=== PATIENT | male | born 1990 | race Caucasian/White ===

== ENCOUNTER 2019-04-11 10:45 | Observation (INO) ==
--- OUTSIDE RECORDS SUMMARY | 2019-04-11 10:49 | External Medical Summary | Continuity of Care Document ---
:1990 Author Name Bozena Cornejo, Provider Address Unavailable Unavailable , Care Team Providers Name Role Phone Bala Mcdermott [email or web address] [facility] AMAIRANI CARROLL Unavailable Unavailable Assessments Assessed Problems:Nephrolithiasis Problems Hematuria (599.70) (R31.9) Asthma (493.90) (J45.909) Chronic bronchitis (491.9) (J42) Hypertension (401.9) (I10) Nephrolithiasis (592.0) (N20.0) Hematuria, microscopic (599.72) (R31.29) Allergies and Adverse Reactions Claritin TABS (Allergy) traMADol HCl TABS (Allergy) Medications Dilantin 100 MG Oral Capsule Refills: 0 Excedrin TABS Refills: 0 Metoprolol Tartrate 50 MG Oral Tablet Refills: 0 Nortriptyline HCl CAPS Refills: 0 Procedures Procedures not documented Immunizations Immunizations not documented Social History - Smoking Status Former smoker Plan of Treatment Planned Observations Planned Goals not documented Results No Known Results Results not documented Encounters Appointment; Bala Mcdermott M.D. 11-Feb-2017 10:10 Encounter Diagnosis: Problem not documented
[2019-04-11] MEDS ORDERED: SODIUM CHLORIDE 0.9% 1000ML 1,000 ML IV SCH (11:15)
--- NOTE | 2019-04-11 11:21 | XRay Report ---
XR chest 1V portable CLINICAL HISTORY: weakness mental status change COMPARISON STUDY: No previous studies for comparison. FINDINGS: The bones soft tissues and hemidiaphragms are normal. The cardiomediastinal silhouette is n ormal. The lungs are clear. The pulmonary vasculature is normal. IMPRESSION: Negative chest. The above report was generated using voice recognition software. It may contain grammatical, syntax or spelling errors. Electronically signed by: Hermann Rodriguez M.D. 04/11/2019 11:20 AM
[2019-04-11 11:43] LABS: Basophils # (auto) 0.01 K/uL (0-0.2); Basophils % (auto) 0.2 %; Eosinophils % (auto) 4.1 %; Hematocrit (blood only) 46.5 % (42-52); Immature Granulocytes # (auto) 0.01 K/uL (0.00-0.02); Immature Granulocytes % (auto) 0.2 %; Lymphocytes # (auto) 1.27 K/uL (1.2-3.4); Lymphocytes % (auto) 25.9 %; Mean Corpuscular Hgb Conc 34.4 g/dL (32-36); Mean Corpuscular Volume 97.7 fL (80-100); Mean Platelet Volume 8.6 fL (7.4-10.4); Monocytes # (auto) 0.61 K/uL (0.11-0.59); Monocytes % (auto) 12.4 %; Neutrophils # (auto) 2.81 K/uL (1.4-6.5); Neutrophils % (auto) 57.2 %; Platelet Count 270 K/uL (130-400); RDW Coefficient of Variation 12.6 % (11.5-14.5); Red Blood Count 4.76 M/uL (4.7-6.1); White Blood Count 4.91 K/uL (4.8-10.8)
--- NOTE | 2019-04-11 11:47 | CT Scan Report ---
CT head/brain wo con CLINICAL HISTORY: 29 years-old Male presenting with right-sided weakness, stroke evaluation. TECHNIQUE: Multidetector CT imaging of the head was performed without the use of intravenous contrast . IV contrast: None. One or more dose lowering techniques were used consistent with the principles of ALARA (as low as reasonably achievable), including automatic exposure control, mA or kV adjustment t o individual patient size, and/or use of iterative reconstruction. COMPARISON: 03/26/2010. CT DOSE (mGy.cm): The estimated cumulative dose is 638.56. FINDINGS: It Infrastructure Engineer topogram: Unremarkable. Ventricles and sulci normal in size. No hemorrhage. Brain parenchyma normal in appearance with preser ivett gagnon-white differentiation. No acute territorial infarct. No mass effect or midline shift. No ext ra-axial fluid collection. Paranasal sinuses and mastoid air cells clear. Calvarium intact. IMPRESSION: 1. No acute intracranial abnormality. Electronically signed by: Garrick Rogers M.D. 04/11/2019 11:46 AM
[2019-04-11 12:00] LABS: Alanine Aminotransferase 68 U/L (12-78); Albumin Level 3.9 gm/dl (3.4-5.0); Aspartate Aminotransferase 40 U/L (15-37); BUN Creatinine Ratio 16.9 (10-20); Blood Urea Nitrogen 18 mg/dl (7-18); Calcium 9.4 mg/dl (8.5-10.1); Carbon Dioxide 31 mmol/L (21-32); Chloride 105 mmol/L (98-107); Creatinine Clr Calc Pharmacy 119.4 ml/min; Est GFR (African American) 107.7; Est GFR (Non-African American) 92.9; Glucose 92 mg/dl (70-99); Magnesium 2.1 mg/dl (1.8-2.4); Potassium 4.3 mmol/L (3.5-5.1); Sodium 141 mmol/L (136-145)
[2019-04-11 12:05] LABS: Albumin Globulin Ratio 1.2 (0.9-2); Alkaline Phosphatase 76 U/L (45-117); Bilirubin,Total 0.4 mg/dl (0.2-1); Globulin 3.3 gm/dl (2.5-4.0); Total Protein 7.2 gm/dl (6.4-8.2); Troponin I < 0.015 ng/ml (0-0.045)
[2019-04-11 12:11] LABS: INR 1.1 (0.9-1.1); Partial Thromboplastin Ratio 0.9; Partial Thromboplastin Time 25.6 Seconds (21.0-31.0); Prothrombin Time 10.8 Seconds (9.0-12.0)
--- NOTE | 2019-04-11 13:15 | Emergency Department Note ---
Entered by Soo Renae acting as a scribe for History of Present Illness General Chief complaint: Stroke/CVA Symptoms Stated complaint: RIGHT SIDE Time Seen by Provider: 04/11/19 10:57 Source: patient History of Present Illness Provider complaint: right-sided weakness Onset (ago): day(s) 8 Location: upper extremity, lower extremity and right Pain Consistency: + constant Maximum Pain Intensity: 0 Quality: + other (weakness) The patient is a 29 year old male who presents to the Emergency Department with complaints of right-sided weakness for the last 8 days. The patient rates his pain intensity at a 0/10. He states that he first had symptoms 8 days ago and was sitting while he had these symptoms. He states that he went to the [facility] and said that he had a stroke. He states that he fell and states that he does not remember a lot of the episode. The patient states that he takes Dilantin, Aspirin, and Gabapentin daily. The patient states that his Dilantin level was last checked 1 month ago and states that he last had a seizure on the . He reports a history of seizures and a lithotripsy. He denies alcohol and drug use. The patient states that he last used tobacco 3 years ago. He denies a history of cardiac problems. Home Medications Home Medications Medication Instructions Recorded Confirmed Type aspirin 81 mg PO DAILY 04/11/19 04/11/19 History elbelwskjw-lhfnhqgrszedr-vejx 1 tab PO BID PRN 04/11/19 04/11/19 History diclofenac sodium 75 mg PO BID PRN 04/11/19 04/11/19 History gabapentin 300 mg PO BID 04/11/19 04/11/19 History gabapentin 600 mg PO BID 04/11/19 04/11/19 History levetiracetam [Keppra] 500 mg PO BID 04/11/19 04/11/19 History metoprolol tartrate 100 mg PO BID 04/11/19 04/11/19 History ondansetron HCl 4 mg PO TID PRN 04/11/19 04/11/19 History phenytoin 50 mg PO HS 04/11/19 04/11/19 History phenytoin sodium extended 200 mg PO HS 04/11/19 04/11/19 History Allergies Allergy/AdvReac Type Severity Reaction Status Date / Time loratadine Allergy Unknown . Verified 04/11/19 11:29 tramadol Allergy Unknown . 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 and A total of 10 systems reviewed and were otherwise negative Physical Exam Vital Signs Vital Signs - 24 hr 04/11/19 10:48 04/11/19 11:33 04/11/19 11:57 Temperature 36.8 C Temperature Source Oral Sepsis Recent Fever Within 48 Hours No Sepsis Action Taken by Nursing No Action Required Pulse Rate 70 64 66 Pulse Rate from SpO2 Sensor 64 Respiratory Rate 16 22 23 Respiratory Effort / Characteristics Non-Labored Respiratory Depth Normal Blood Pressure 146/100 H 132/92 Blood Pressure Mean 115 105 Blood Pressure Position Lying Pulse Oximetry 97 97 96 Oxygen Delivery Method Room Air Room Air Room Air 04/11/19 12:00 04/11/19 12:01 04/11/19 12:30 Temperature Temperature Source Sepsis Recent Fever Within 48 Hours Sepsis Action Taken by Nursing Pulse Rate 66 62 62 Pulse Rate from SpO2 Sensor 65 62 62 Respiratory Rate 25 H 17 12 Respiratory Effort / Characteristics Respiratory Depth Blood Pressure 140/88 139/82 Blood Pressure Mean 105 101 Blood Pressure Position Pulse Oximetry 95 95 95 Oxygen Delivery Method Room Air Room Air Room Air 04/11/19 12:31 04/11/19 13:00 04/11/19 13:01 Temperature Temperature Source Sepsis Recent Fever Within 48 Hours Sepsis Action Taken by Nursing Pulse Rate 61 62 67 Pulse Rate from SpO2 Sensor 61 63 67 Respiratory Rate 21 17 18 Respiratory Effort / Characteristics Respiratory Depth Blood Pressure 142/85 H Blood Pressure Mean 104 Blood Pressure Position Pulse Oximetry 95 97 96 Oxygen Delivery Method Room Air Room Air Room Air 04/11/19 13:30 Temperature Temperature Source Sepsis Recent Fever Within 48 Hours Sepsis Action Taken by Nursing Pulse Rate 65 Pulse Rate from SpO2 Sensor 62 Respiratory Rate 16 Respiratory Effort / Characteristics Respiratory Depth Blood Pressure Blood Pressure Mean Blood Pressure Position Pulse Oximetry 95 Oxygen Delivery Method Room Air GENERAL: Patient is awake, alert, and in no acute distress.Patient is resting comfortably and showing no signs of anxiety EYES: The conjunctivae are clear. The pupils are round and reactive. EARS, NOSE, MOUTH AND THROAT: The nose is without any evidence of any deformity. Mucous membranes are moist.Tongue is midline NECK: The neck is nontender and supple. RESPIRATORY: Normal respiratory effort is noted. There is no evidence of wheezing rhonchi or rales to auscultation. CARDIOVASCULAR: Regular rate and rhythm noted. There no murmurs rubs or gallops normal S1 normal S2 GASTROINTESTINAL: The abdomen is soft. Bowel sounds are present in all quadrants. Abdomen is nontender. MUSCULOSKELETAL/EXTREMITIES: There is no evidence of gross deformity. Full range of motion is noted in the hips and shoulders. SKIN: There is no obvious evidence of any rash. There are no petechiae, pallor or cyanosis noted. NEUROLOGIC: Patient is awake alert and oriented x3. Slight right facial droop with sparing of the forehead on the right. 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 The patient is able to hold each leg off of the bed for greater than 5 seconds. Diminished strength in the right lower extremity. Course 1100: The patient was evaluated in room C7. A history and physical were performed. 1233: I discussed the patient's case with Oneyda Mraes, admitting to Dr. Schulz, who will evaluate the patient for further management. 1249: I updated the patient who verbalized agreement and understanding of the treatment plan. Consultations Consultation #1: Oneyda Mares Time: 12:33 Administered Medications Aspirin (Ecotrin Ectab) 81 mg PO DAILY ISABEL Stop: 05/12/19 08:59 Last Admin: 04/12/19 08:43 Dose: 81 mg Documented by: [id number] Enoxaparin Sodium (Lovenox) 40 mg SQ HS ISABEL Stop: 05/11/19 20:59 Last Admin: 04/11/19 21:02 Dose: 40 mg Documented by: [id number] Gabapentin (Neurontin) 300 mg PO BID ISABEL Stop: 05/11/19 20:59 Last Admin: 04/12/19 08:42 Dose: 300 mg Documented by: [id number] Admin: 04/11/19 21:02 Dose: 300 mg Documented by: [id number] Gabapentin (Neurontin) 600 mg PO BID ISABEL Stop: 05/11/19 20:59 Last Admin: 04/12/19 08:42 Dose: 600 mg Documented by: [id number] Admin: 04/11/19 21:02 Dose: 600 mg Documented by: [id number] Levetiracetam (Keppra) 500 mg PO BID ISABEL Stop: 05/11/19 20:59 Last Admin: 04/12/19 08:43 Dose: 500 mg Documented by: [id number] Admin: 04/11/19 21:01 Dose: 500 mg Documented by: [id number] Metoprolol Tartrate (Lopressor) 100 mg PO BID ISABEL Stop: 05/11/19 20:59 Last Admin: 04/12/19 08:43 Dose: 100 mg Documented by: [id number] Admin: 04/11/19 21:02 Dose: 100 mg Documented by: [id number] Phenytoin (Dilantin) 50 mg PO HS ISABEL Stop: 05/11/19 20:59 Last Admin: 04/11/19 21:00 Dose: 50 mg Documented by: [id number] Phenytoin Sodium (Dilantin Er) 200 mg PO HS ISABEL Stop: 05/11/19 20:59 Last Admin: 04/11/19 21:00 Dose: 200 mg Documented by: [id number] Discontinued Medications Sodium Chloride (Nss 1000ml) 1,000 mls @ 50 mls/hr IV .Q20H ISABEL Stop: 05/11/19 11:14 Last Admin: 04/11/19 11:43 Dose: 50 mls/hr Documented by: [id number] Medical Decision Making Differential Diagnosis Differential includes acute coronary syndrome, myocardial infarction, CVA, TIA, anemia, infection, pneumonia, UTI, pyelonephritis, poor nutrition, dehydration, electrolyte disturbance,hypoglycemia. Medical Records Attestation: I reviewed the patient's medical records. Home Medications Current Medication List: was personally reviewed by me Laboratory Data Attestation: I reviewed the patient's lab results. Result diagrams: 04/11/19 11:35 04/11/19 11:35 Lab Results 04/11/19 04/11/19 04/11/19 Range/Units 11:35 11:35 11:35 WBC 4.91 (4.8-10.8) K/uL RBC 4.76 (4.7-6.1) M/uL Hgb 16.0 (14.0-18.0) g/dL Hct 46.5 (42-52) % MCV 97.7 (80-100) fL MCH 33.6 (25-34) pg MCHC 34.4 (32-36) g/dL RDW Std Deviation 45.0 (36.4-46.3) fL RDW Coeff of Robinson 12.6 (11.5-14.5) % Plt Count 270 (130-400) K/uL MPV 8.6 (7.4-10.4) fL Immature Gran % (Auto) 0.2 % Neut % (Auto) 57.2 % Lymph % (Auto) 25.9 % Warrick % (Auto) 12.4 % Eos % (Auto) 4.1 % Baso % (Auto) 0.2 % Immature Gran # (Auto) 0.01 (0.00-0.02) K/uL Neut # (Auto) 2.81 (1.4-6.5) K/uL Lymph # (Auto) 1.27 (1.2-3.4) K/uL Warrick # (Auto) 0.61 H (0.11-0.59) K/uL Eos # (Auto) 0.20 (0-0.5) K/uL Baso # (Auto) 0.01 (0-0.2) K/uL PT 10.8 (9.0-12.0) Seconds INR 1.1 (0.9-1.1) APTT 25.6 (21.0-31.0) Seconds PTT Ratio 0.9 Sodium 141 (136-145) mmol/L Potassium 4.3 (3.5-5.1) mmol/L Chloride 105 (98-107) mmol/L Carbon Dioxide 31 (21-32) mmol/L Anion Gap 5.0 (3-11) BUN 18 (7-18) mg/dl Creatinine 1.08 (0.6-1.4) mg/dl Est Cr Clr Drug Dosing 119.4 ml/min Est GFR ( Amer) 107.7 Est GFR (Non-Af Amer) 92.9 BUN/Creatinine Ratio 16.9 (10-20) Glucose 92 (70-99) mg/dl Estimat Average Glucose mg/dl Hemoglobin A1c (4.5-5.6) % Calcium 9.4 (8.5-10.1) mg/dl Magnesium 2.1 (1.8-2.4) mg/dl Total Bilirubin 0.4 (0.2-1) mg/dl AST 40 H (15-37) U/L ALT 68 (12-78) U/L Alkaline Phosphatase 76 (45-117) U/L Troponin I < 0.015 (0-0.045) ng/ml Total Protein 7.2 (6.4-8.2) gm/dl Albumin 3.9 (3.4-5.0) gm/dl Globulin 3.3 (2.5-4.0) gm/dl Albumin/Globulin Ratio 1.2 (0.9-2) Phenytoin (10-20) mcg/ml 04/11/19 04/11/19 Range/Units 11:35 11:35 WBC (4.8-10.8) K/uL RBC (4.7-6.1) M/uL Hgb (14.0-18.0) g/dL Hct (42-52) % MCV (80-100) fL MCH (25-34) pg MCHC (32-36) g/dL RDW Std Deviation (36.4-46.3) fL RDW Coeff of Robinson (11.5-14.5) % Plt Count (130-400) K/uL MPV (7.4-10.4) fL Immature Gran % (Auto) % Neut % (Auto) % Lymph % (Auto) % Warrick % (Auto) % Eos % (Auto) % Baso % (Auto) % Immature Gran # (Auto) (0.00-0.02) K/uL Neut # (Auto) (1.4-6.5) K/uL Lymph # (Auto) (1.2-3.4) K/uL Warrick # (Auto) (0.11-0.59) K/uL Eos # (Auto) (0-0.5) K/uL Baso # (Auto) (0-0.2) K/uL PT (9.0-12.0) Seconds INR (0.9-1.1) APTT (21.0-31.0) Seconds PTT Ratio Sodium (136-145) mmol/L Potassium (3.5-5.1) mmol/L Chloride (98-107) mmol/L Carbon Dioxide (21-32) mmol/L Anion Gap (3-11) BUN (7-18) mg/dl Creatinine (0.6-1.4) mg/dl Est Cr Clr Drug Dosing ml/min Est GFR ( Amer) Est GFR (Non-Af Amer) BUN/Creatinine Ratio (10-20) Glucose (70-99) mg/dl Estimat Average Glucose 105 mg/dl Hemoglobin A1c 5.3 (4.5-5.6) % Calcium (8.5-10.1) mg/dl Magnesium (1.8-2.4) mg/dl Total Bilirubin (0.2-1) mg/dl AST (15-37) U/L ALT (12-78) U/L Alkaline Phosphatase (45-117) U/L Troponin I (0-0.045) ng/ml Total Protein (6.4-8.2) gm/dl Albumin (3.4-5.0) gm/dl Globulin (2.5-4.0) gm/dl Albumin/Globulin Ratio (0.9-2) Phenytoin 20.8 H (10-20) mcg/ml Imaging Data Radiologist's Impression: Radiology results as stated below per my review and the radiologist's interpretation: XR chest 1V portable CLINICAL HISTORY: weakness mental status change COMPARISON STUDY: No previous studies for comparison. FINDINGS: The bones soft tissues and hemidiaphragms are normal. The cardiomediastinal silhouette is normal. The lungs are clear. The pulmonary vasculature is normal. IMPRESSION: Negative chest. The above report was generated using voice recognition software. It may contain grammatical, syntax or spelling errors. Electronically signed by: Hermann Rodriguez M.D. 04/11/2019 11:[address] head/brain wo con CLINICAL HISTORY: 29 years-old Male presenting with right-sided weakness, stroke evaluation. TECHNIQUE: Multidetector CT imaging of the head was performed without the use of intravenous contrast. IV contrast: None. One or more dose lowering techniques were used consistent with the principles of ALARA (as low as reasonably achievable), including automatic exposure control, mA or kV adjustment to individual patient size, and/or use of iterative reconstruction. COMPARISON: 03/26/2010. CT DOSE (mGy.cm): The estimated cumulative dose is 638.56. 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 Ventricles and sulci normal in size. No hemorrhage. Brain parenchyma normal in appearance with preserved gagnon-white differentiation. No acute territorial infarct. No mass effect or midline shift. No extra-axial fluid collection. Paranasal sinuses and mastoid air cells clear. Calvarium intact. IMPRESSION: 1. No acute intracranial abnormality. Electronically signed by: Garrick Rogers M.D. 04/11/2019 11:46 AM ECG Data Attestation: I personally reviewed and interpreted this ECG as follows: Indication: weakness Rate (beats per minute): 68 Rhythm: normal sinus Findings: no PAC, no PVC, no ST depression, no ST elevation, no acute ischemic change and no ectopy Comparison ECG Date: from (04/13/18) Change: no significant change Blood Pressure Blood Pressure Findings: Elevated blood pressure Blood Pressure Disposition: further management by hospitalist KYLAH Mello The patient is a 29-year-old male who presented to the emergency department for an evaluation of right-sided weakness. The patient states that he had an acute onset of right-sided weakness approximately 8 days ago. The patient states that he was started on an aspirin for the symptoms. He notices no other symptoms such as headache. His exam was consistent with significant right-sided weakness as well as a right facial droop. I discussed the patient's laboratory and radiographic studies with him. Because of his symptoms I also discussed his case with the on-call [facility] hospitalist group. They have agreed to evaluate the patient in the emergency department for further management disposition. Likely the patient will require further work-up including MRI and possibly angiography of the brain. I discussed this with the patient he was agreeable to further work-up as an inpatient. Impression & Plan Right sided weakness, Neurological symptoms Discharge Plan Visit Data *Final* Discharge Date/Time: 04/11/19 15:20 Chief Complaint: Stroke/CVA Symptoms Stated Complaint: RIGHT SIDE ED Provider: Jai Lewis Discharge Problem: Right sided weakness, Neurological symptoms Patient Disposition: Admitted As Inpatient Discharge Instructions Interventions: ED Discharge Assessment Last Done: 04/11/19 15:20 The scribe's documentation has been prepared under my direction and personally reviewed by me in its entirety. I confirm that the note above accurately reflects all work, treatment, procedures, and medical decision making performed by me.
[2019-04-11 13:44] LABS: Appearance Urine Clear (Clear); Bilirubin Urine Negative (Negative); Blood Urine Negative (Negative); Color Urine Yellow; Glucose Urine UA Negative (Negative); Ketones Urine Negative (Negative); Leukocyte Esterase Urine Negative (Negative); Nitrite Urine Negative (Negative); Protein Urine Negative (Negative); Specific Gravity Urine 1.015 (1.000-1.030); Urobilinogen Urine Negative (Negative); pH Urine 7.5 (4.5-7.5)
--- NOTE | 2019-04-11 13:46 | History & Physical Report ---
Date of Service April 11, 2019 Assessment & Plan (1) Right sided weakness: Several day history of RLE weakness. CT head without contrast negative. Check MRI brain. Check carotid duplex and echo. Monitor for arrhythmias. Antiplatelet therapy with aspirin. Check lipid profile. PT / OT / [employer] evals. Consult Neuro- has been seen by Dr. Reynoso in the past. 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 Continue phenytoin and levetiracetam. (3) Hypertension: Continue metoprolol. (4) DVT prophylaxis: SQ enoxaparin. (5) Discharge planning issues: Anticipated return to [facility] under the care of the medical team there. History of Present Illness Chief Complaint: weakness right lower extremity [facility] 29 [facility] [place] [facility]. History of closed head injury at the age of 9, subsequent seizure disorder, migraine headaches, hypertension, and other problems as noted above. Seizures occur about twice a year. Last episode occurred about a week ago. At that time he did not experience any focal neuro symptoms. Subsequently developed weakness in right upper and right lower extremities a few days later. RUE weakness has resolved. Persistent RLE weakness; drags his right foot but has not suffered any falls. No change of migraine headache symptoms. No visual changes. Some dysarthria. No aphasia. No sensory changes. Allergies Allergy/AdvReac Type Severity Reaction Status Date / Time loratadine Allergy Unknown . Verified 04/11/19 11:29 tramadol Allergy Unknown . Verified 04/11/19 11:29 Home Medications Home Medications Medication Instructions Recorded Confirmed Type aspirin 81 mg PO DAILY 04/11/19 04/11/19 History [id number] 1 tab PO BID PRN 04/11/19 04/11/19 History diclofenac sodium 75 mg PO BID PRN 04/11/19 04/11/19 History gabapentin 300 mg PO BID 04/11/19 04/11/19 History gabapentin 600 mg PO BID 04/11/19 04/11/19 History levetiracetam [Keppra] 500 mg PO BID 04/11/19 04/11/19 History metoprolol tartrate 100 mg PO BID 04/11/19 04/11/19 History ondansetron HCl 4 mg PO TID PRN 04/11/19 04/11/19 History phenytoin 50 mg PO HS 04/11/19 04/11/19 History phenytoin sodium extended 200 mg PO HS 04/11/19 04/11/19 History Past Med/Surg History Medical History Hypertension (Chronic) Seizure (Chronic) Closed head injury (Chronic) History of renal calculi (Chronic) Lyme disease (Resolved) Surgical History H/O lithotripsy (Chronic) Family History Father Diabetes Hypertension Grandfather (Paternal) Stroke Uncle Stroke Social History Feels Safe at Home: Yes Smoking Status: Never smoker Hx Alcohol Use: No Review of Systems Constitutional: no fever and no weight loss Eyes: no diplopia and no worsening vision Ear, Nose, Mouth, Throat: no nasal congestion, no sinus pain/pressure and no sore throat Respiratory: no cough and no dyspnea Cardiovascular: no chest pain, no palpitations and no edema Gastrointestinal: no nausea, no vomiting, no constipation, no diarrhea/loose stools, no blood in stools and no melena Musculoskeletal: no joint pain and no myalgia Integumentary: no rash and no new lesions Neurologic: as per Subjective / HPI Endocrine: no polydipsia and no polyuria Hematologic / Lymphatic: no easy bleeding, no easy bruising and no lymphadenopathy Physical Exam Constitutional: WD/WN, vitals as above no acute distress Eyes: PERRL, conjunctivae normal, anicteric sclerae ENMT: external ear and nose normal, oropharynx normal Neck: trachea midline, no thyromegaly Respiratory: normal respiratory effort, lungs clear to auscultation Cardiovascular: Rate/Rhythm: regular rate Heart Sounds: no gallop, no murmur and no cardiac rub Vessels: normal carotid upstroke; no JVD and no carotid bruit Extremities: normal capillary refill; no calf tenderness and no edema Gastrointestinal (Abdomen): normal bowel sounds, soft, nontender, no hepatosplenomegaly Musculoskeletal: Head/Neck/Chest: neck supple Extremities: strength 5/5 throughout; no cyanosis and no clubbing Skin: no rashes, warm and dry Neurologic: PERRL, EOMI ? right facial palsy no dysarthria or aphasia upper extremity strength 5/5 bilat RLE hip flexion 4/5, plantar flexion 4/5, dorsiflexion 4/5 patellar DTR's 2/2 bilat plantar reflexes downgoing bilat Psychiatric: Orientation: alert and oriented x 3 Affect: euthymic affect Lymphatic: no cervical lymphadenopathy Results & Data Vital Signs (Past 12 Hours) Vital Signs Temp Pulse Resp BP Pulse Ox 04/11/19 13:01 67 18 96 04/11/19 13:00 62 17 142/85 H 97 04/11/19 12:31 61 21 95 04/11/19 12:30 62 12 139/82 95 04/11/19 12:01 62 17 95 04/11/19 12:00 66 25 H 140/88 95 04/11/19 11:57 66 23 132/92 96 04/11/19 11:33 64 22 97 04/11/19 10:48 36.8 C 70 16 146/100 H 97 Laboratory Results Laboratory Results - last 24 hr 04/11/19 04/11/19 04/11/19 11:35 11:35 11:35 WBC 4.91 RBC 4.76 Hgb 16.0 Hct 46.5 MCV 97.7 MCH 33.6 MCHC 34.4 RDW Std Deviation 45.0 RDW Coeff of Robinson 12.6 Plt Count 270 MPV 8.6 Immature Gran % (Auto) 0.2 Neut % (Auto) 57.2 Lymph % (Auto) 25.9 [place] % (Auto) 12.4 Eos % (Auto) 4.1 Baso % (Auto) 0.2 Immature Gran # (Auto) 0.01 Neut # (Auto) 2.81 Lymph # (Auto) 1.27 [place] # (Auto) 0.61 H Eos # (Auto) 0.20 Baso # (Auto) 0.01 PT 10.8 INR 1.1 APTT 25.6 PTT Ratio 0.9 Sodium 141 Potassium 4.3 Chloride 105 Carbon Dioxide 31 Anion Gap 5.0 BUN 18 Creatinine 1.08 Est Cr Clr Drug Dosing 119.4 Est GFR ( Amer) 107.7 Est GFR (Non-Af Amer) 92.9 BUN/Creatinine Ratio 16.9 Glucose 92 Calcium 9.4 Magnesium 2.1 Total Bilirubin 0.4 AST 40 H ALT 68 Alkaline Phosphatase 76 Troponin I < 0.015 Total Protein 7.2 Albumin 3.9 Globulin 3.3 Albumin/Globulin Ratio 1.2 Urine Color Urine Appearance Urine pH Ur Specific [place] Urine Protein Urine Glucose (UA) Urine Ketones Urine Blood Urine Nitrite Urine Bilirubin Urine Urobilinogen Ur Leukocyte Esterase Urine Butalbital Urine Opiates Screen Ur Methadone, Qual Urine Barbiturates Phenytoin Ur Phencyclidine (PCP) U Amphetamin/Meth Scrn MDMA (Ecstasy) Screen Urine Amobarbital Urine Pentobarbital Urine Phenobarbital Urine Secobarbital U Benzodiazepines Scrn Ur Cocaine Metabolite U Marijuana (THC) Screen 04/11/19 04/11/19 04/11/19 11:35 13:32 13:32 WBC RBC Hgb Hct MCV MCH MCHC RDW Std Deviation RDW Coeff of Robinson Plt Count MPV Immature Gran % (Auto) Neut % (Auto) Lymph % (Auto) [place] % (Auto) Eos % (Auto) Baso % (Auto) Immature Gran # (Auto) Neut # (Auto) Lymph # (Auto) [place] # (Auto) Eos # (Auto) Baso # (Auto) PT INR APTT PTT Ratio Sodium Potassium Chloride Carbon Dioxide Anion Gap BUN Creatinine Est Cr Clr Drug Dosing Est GFR ( Amer) Est GFR (Non-Af Amer) BUN/Creatinine Ratio Glucose Calcium Magnesium Total Bilirubin AST ALT Alkaline Phosphatase Troponin I Total Protein Albumin Globulin Albumin/Globulin Ratio Urine Color Yellow Urine Appearance Clear Urine pH 7.5 Ur Specific [place] 1.015 Urine Protein Negative Urine Glucose (UA) Negative Urine Ketones Negative Urine Blood Negative Urine Nitrite Negative Urine Bilirubin Negative Urine Urobilinogen Negative Ur Leukocyte Esterase Negative Urine Butalbital Urine Opiates Screen Neg Ur Methadone, Qual Neg Urine Barbiturates Pos H Phenytoin 20.8 H Ur Phencyclidine (PCP) Neg U Amphetamin/Meth Scrn Neg MDMA (Ecstasy) Screen Neg Urine Amobarbital Urine Pentobarbital Urine Phenobarbital Urine Secobarbital U Benzodiazepines Scrn Neg Ur Cocaine Metabolite Neg U Marijuana (THC) Screen Neg 04/11/19 13:32 WBC RBC Hgb Hct MCV MCH MCHC RDW Std Deviation RDW Coeff of Robinson Plt Count MPV Immature Gran % (Auto) Neut % (Auto) Lymph % (Auto) [place] % (Auto) Eos % (Auto) Baso % (Auto) Immature Gran # (Auto) Neut # (Auto) Lymph # (Auto) [place] # (Auto) Eos # (Auto) Baso # (Auto) PT INR APTT PTT Ratio Sodium Potassium Chloride Carbon Dioxide Anion Gap BUN Creatinine Est Cr Clr Drug Dosing Est GFR ( Amer) Est GFR (Non-Af Amer) BUN/Creatinine Ratio Glucose Calcium Magnesium Total Bilirubin AST ALT Alkaline Phosphatase Troponin I Total Protein Albumin Globulin Albumin/Globulin Ratio Urine Color Urine Appearance Urine pH Ur Specific [place] Urine Protein Urine Glucose (UA) Urine Ketones Urine Blood Urine Nitrite Urine Bilirubin Urine Urobilinogen Ur Leukocyte Esterase Urine Butalbital Pending Urine Opiates Screen Ur Methadone, Qual Urine Barbiturates Phenytoin Ur Phencyclidine (PCP) U Amphetamin/Meth Scrn MDMA (Ecstasy) Screen Urine Amobarbital Pending Urine Pentobarbital Pending Urine Phenobarbital Pending Urine Secobarbital Pending U Benzodiazepines Scrn Ur Cocaine Metabolite U Marijuana (THC) Screen Diagnostic Findings PORTABLE CHEST X-RAY IMPRESSION: Negative chest. The above report was generated using voice recognition software. It may contain grammatical, syntax or spelling errors. Electronically signed by: Hermann Rodriguez M.D. 04/11/2019 11:[address] HEAD WITHOUT CONTRAST FINDINGS: Operating Room Aide topogram: Unremarkable. Ventricles and sulci normal in size. No hemorrhage. Brain parenchyma normal in appearance with preserved gagnon-white differentiation. No acute territorial infarct. No mass effect or midline shift. No extra-axial fluid collection. Paranasal sinuses and mastoid air cells clear. Calvarium intact. IMPRESSION: 1. No acute intracranial abnormality. Electronically signed by: Garrick Rogers M.D. 04/11/2019 11:46 AM ECG Additional Comments: EKG performed at 1125 reviewed and demonstrated NSR at 70 / min, slight J-point elevation I, II, aVF, biphasic T-waves III.
[2019-04-11 14:13] LABS: Amphetamines+Metham, Urine Neg (Neg); Barbiturates, Urine Pos (Neg); Benzodiazepine, Urine Neg (Neg); Cocaine, Urine Neg (Neg); MDMA (Ecstacy), Urine Neg (Neg); Methadone, Urine Neg (Neg); Opiate, Urine Neg (Neg); Phencyclidine, Urine Neg (Neg)
[2019-04-11] MEDS ORDERED: ONDANSETRON 4 MG TAB PO PRN (16:02)
[2019-04-11] MEDS ORDERED: PHARMACIST DISCHARGE MED REC CONSULT PRN (16:02)
[2019-04-11] MEDS ORDERED: BUTALBITAL/ACETAMIN/CAFFEINE TAB PO PRN (16:02)
[2019-04-11] MEDS ORDERED: DICLOFENAC SODIUM 75 MG TABCR PO PRN (16:02)
--- NOTE | 2019-04-11 18:21 | Magnetic Resonance Report ---
MRI OF THE BRAIN WITHOUT IV CONTRAST CLINICAL HISTORY: Right-sided weakness. Blurred vision. COMPARISON STUDY: CT of the brain dated 04/11/2019. TECHNIQUE: MRI of the brain was performed utilizing various T1 and T2-weighted sequences in the axial , sagittal, and coronal planes. IV contrast was not administered for this examination. The examinatio n is modestly degraded by motion artifact. FINDINGS: Brain parenchyma: The brain parenchyma is normal in appearance. There is no hemorrhage or mass effect . There is no restricted diffusion to suggest acute ischemia. Mckeon-white matter differentiation is pr eserved. No extra-axial fluid collection is seen. The hippocampi are normal and symmetric. The cerebe llar tonsils are normal in configuration. Ventricles, sulci, and cisterns: Normal in configuration. Pituitary and sella: Unremarkable. Intracranial vasculature: Normal flow voids are maintained at the skull base. Orbits: The bony orbits are grossly intact. Orbital contents are normal in appearance. Sinuses and mastoids: Clear. Calvarium: Unremarkable. Cervical cord: Partially visualized cervical spinal cord is normal in morphology and signal intensity . IMPRESSION: There is no acute intracranial abnormality. Electronically signed by: Italo Kee M.D. 04/11/2019 6:20 PM
--- NOTE | 2019-04-11 18:24 | Ultrasound Report ---
CAROTID ARTERY ULTRASOUND CLINICAL HISTORY: right-sided weakness COMPARISON STUDY: None. TECHNIQUE: Real-time, grayscale, and color Doppler sonography of the carotid and vertebral arteries w as performed. Images were viewed in the transverse and longitudinal planes. FINDINGS: There is no significant atherosclerotic plaque. Velocity measurements are listed COMMON CAROTID PEAK SYSTOLIC VELOCITY (CM/S): RIGHT 137 LEFT 139 ICA PEAK SYSTOLIC VELOCITY (CM/S): RIGHT 116 LEFT 99 The systolic ratios between internal to common carotid arteries were normal. Antegrade flow is seen in the vertebral arteries. The external carotid arteries are patent. Blood pressure in the right arm measured 149/106. Blood pressure in the left arm measured 145/89. IMPRESSION: No evidence for a hemodynamically significant stenosis. Electronically signed by: Justyn Sweet M.D. 04/11/2019 6:23 PM
[2019-04-11] MEDS ORDERED: PHENYTOIN SODIUM ER 100 MG CAP PO SCH (21:00)
[2019-04-11] MEDS ORDERED: PHENYTOIN 50 MG CHEW PO SCH (21:00)
[2019-04-11] MEDS ORDERED: ENOXAPARIN INJ 40 MG/0.4 ML SYR SQ SCH (21:00)
[2019-04-11] MEDS: levETIRAcetam 500 MG TAB PO SCH (21:01)
[2019-04-11] MEDS: METOPROLOL TARTRATE 100 MG TAB PO SCH (21:02)
[2019-04-11] MEDS: GABAPENTIN 600 MG TAB PO SCH (21:02)
[2019-04-11] MEDS: GABAPENTIN 300 MG CAP PO SCH (21:02)
[2019-04-12 06:13] LABS: Estimated Average Glucose 105 mg/dl; Hemoglobin A1C 5.3 % (4.5-5.6)
[2019-04-12] MEDS: GABAPENTIN 600 MG TAB PO SCH (08:42)
[2019-04-12] MEDS: GABAPENTIN 300 MG CAP PO SCH (08:42)
[2019-04-12] MEDS: METOPROLOL TARTRATE 100 MG TAB PO SCH (08:43)
[2019-04-12] MEDS: levETIRAcetam 500 MG TAB PO SCH (08:43)
[2019-04-12] MEDS ORDERED: ASPIRIN 81 MG ECTAB PO SCH (09:00)
--- NOTE | 2019-04-12 12:16 | Neurology Consultation ---
Date of Consultation April 12, 2019 Assessment & Plan (1) Right sided weakness: Patient has new onset of right-sided weakness for the last week. It seems to initiated with a seizure on April 03. Despite what other clinicians noted in their record yesterday and today, I see no focal weakness. He does not have a facial droop for true pathologic right arm or leg weakness. He does have some giveaway weakness in the right leg at times which indicates effort as opposed to pathology. He has no upper motor neuron signs or any other focal neurologic deficits of an object in nature. He has dysesthesias and decreased sensation in the whole right arm and leg compared to the left, which is subjective. MRI of the brain did not show any stroke. He has no other deficits seen on MRI. I doubt this represents a 7 or 8 days a post ictal state (a it would be very unusual to last more than 2-3 days). (2) Seizure: Patient has a longstanding history of seizure disorder of uncertain type. He has had multiple generalized tonic-clonic events and other events over time. Currently, his anticonvulsant regimen is somewhat unusual in that he is on gabapentin and Keppra for both seizures and pain as well as Dilantin. Dilantin is mildly toxic and likely accounts for his nystagmus seen on exam. Keppra was recently increased from 250 milligrams twice daily to 500 milligrams twice daily. He feels that is making him slow in thinking and moving. Keppra could have this affect particularly when the dose is 1st change. This may fade with time. 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 They occur every day and he tells me he takes Fioricet every day twice daily. If this is true, he is having rebound headaches from medication overuse and has transformed his migraines. He should take no more than 8-10 Fioricet tablets a month and other options for headache prevention need to be explored. Recommendations: 1. Continue gabapentin and levetiracetam at the current doses. 2. Decrease Dilantin to 200 milligrams at bedtime (drop the 50 milligram) and recheck a trough level in 2 weeks. 3. I could follow this patient as an outpatient to make additional recomm endations for seizure medication if desired. 4. There is no need for other neurologic testing at this time. 5. Try to limit Fioricet tablet usage to no more than 10 tablets per month. We can discuss other treatments for headache as an outpatient. Overall, I spent a total of 65 minutes with this case including review of records, review of MRI films, direct evaluation the patient at bedside, and discussion of the case with the patient at bedside, clinical staff, and Dr. Fowler, including differential diagnosis and treatment options. History of Present Illness Reason for Consultation: The patient is a 29-year-old, who I was asked to see at the request of Dr. Schulz, for neurologic consultation regarding right-sided weakness and history of seizures. Requesting Physician: Attending Physician: Bronson Fowler MD History of Present Illness Patient apparently has had a diagnosis of seizures at age 11. Throughout childhood he had episodes of lapses of awareness and other spells. I am uncertain as to his medication history over time as I really do not have any old records prior to 2009. In February of 2010 he was admitted with a 2 minutes generalized tonic-clonic seizure with postictal confusion. He had a 2nd seizure in the emergency room. He was on Dilantin 100 milligrams 3 times a day. He saw Dr. Reynoso who kept him on Dilantin. An MRI of the brain was unremarkable and an EEG was normal awake and asleep. Apparently he did not follow up with Dr. Reynoso and was not seen as an outpatient as I have no outpatient records in our chart after 2009. 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 He claims to get seizures once or twice a year. Typically does not get a warning and does not remember the seizures. He will not have tongue biting or incontinence. Patient has developed chronic migraine headaches which she claims stem from his chronic low back and neck pain. His headaches are daily and he can wake with them or they can occur during the day. He can get dizzy with them and occasionally nausea vomiting and photophobia. He takes Fioricet, he claims, 2 times a day for his headaches which helped. He takes Voltaren as needed. According to my records in the hospital he was taking gabapentin 300 milligrams twice a day as well as 600 milligrams twice a day. He takes phenytoin 50 milligrams +2 100 milligrams extended release at bedtime and Keppra 500 milligrams twice daily. On March 04, he claims that he was sitting eating dinner around 530 or 6 in the evening when his eyes were suddenly rolling back and his right face became droopy. He felt his right side was weak and his speech was slurred. This was a seizure he thought. The next morning the increased his Keppra from 250 milligrams twice daily to 500 milligrams twice daily. He has had right-sided weakness for the last week. He arrived at the emergency room at 1048 on April 11 with a temperature of 36.8, pulse 70, respiratory rate 16, blood pressure 146/100, and O2 saturation 97 percent. He was described as having a right facial droop. 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 CT scan of the head was unremarkable. CBC and Chem profile were normal. Hemoglobin A1c was 5.3 and urinalysis was negative. Dilantin level was mildly high at 20.8. Carotid ultrasound was unremarkable no significant stenoses MRI of the brain was obtained and was unremarkable with no acute stroke and no chronic or old issues. I reviewed this MRI. Today he has no complaint of pain or headache but he feels his right side is still weak and is moving slowly in thinking slowly since his Keppra was increased. Allergies Allergy/AdvReac Type Severity Reaction Status Date / Time loratadine Allergy Unknown . Verified 04/11/19 11:29 tramadol Allergy Unknown . Verified 04/11/19 11:29 Home Medications Home Medications Medication Instructions Recorded Confirmed Type aspirin 81 mg PO DAILY 04/11/19 04/11/19 History uvcmirqwgy-[id number]-[id number] 1 tab PO BID PRN 04/11/19 04/11/19 History diclofenac sodium 75 mg PO BID PRN 04/11/19 04/11/19 History gabapentin 300 mg PO BID 04/11/19 04/11/19 History gabapentin 600 mg PO BID 04/11/19 04/11/19 History levetiracetam [Keppra] 500 mg PO BID 04/11/19 04/11/19 History metoprolol tartrate 100 mg PO BID 04/11/19 04/11/19 History ondansetron HCl 4 mg PO TID PRN 04/11/19 04/11/19 History phenytoin 50 mg PO HS 04/11/19 04/11/19 History phenytoin sodium extended 200 mg PO HS 04/11/19 04/11/19 History Patient History Medical History Hypertension (Chronic) Seizure (Chronic) Closed head injury (Chronic) History of renal calculi (Chronic) Lyme disease (Resolved) Surgical History H/O lithotripsy (Chronic) Family History Father Diabetes Hypertension Grandfather (Paternal) Stroke Uncle Stroke Social History Preferred Language: Malian 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 Hx Substance Use: No Review of Systems Constitutional: + weakness; no fever and no fatigue Eyes: no diplopia, no eye pain and no worsening vision Ear, Nose, Mouth, Throat: no ear pain, no tinnitus, no hearing loss and no dysphagia Respiratory: no cough and no dyspnea Cardiovascular: no chest pain, no dyspnea and no palpitations Gastrointestinal: no abdominal pain, no nausea and no vomiting Genitourinary: no dysuria, no urinary frequency and no urinary incontinence Musculoskeletal: + back pain and + neck pain; no radicular pain, no myalgia, no muscle weakness and no muscle atrophy Integumentary: no rash and no lesions Neurologic: + localized weakness (Right side) and + numbness (Right side); no gait abnormality, no falls, no generalized weakness, no tingling, no tremor(s), no abnormal movements, no dizziness, no headache(s), no abnormal speech, no behavioral changes, no confusion and no memory loss Psychiatric: + difficulty concentrating; no depression, no abnormal sleep pattern, no anxiety, no confusion and no hallucinations Endocrine: no fatigue and no flushing Hematologic / Lymphatic: no easy bleeding and no easy bruising Allergy / Immunological: no urticaria Physical Exam Physical Exam: The patient is right-handed. The patient is awake, alert, and attentive. Speech is normal without any aphasia or dysarthria. Mentation and thought processes are intact, with full orientation and normal fund of knowledge. Attention and concentration are normal. Mood and affect are normal and appropriate. General appearance and grooming are normal. Short and long-term memory are reasonable to conversation although he does not know lot of details of his past medical history. The discs are sharp with positive venous pulsations bilaterally. There are no exudates, hemorrhages, or blood vessel changes seen. Pupils are 4 mm bilaterally and reactive to light. Extraocular eye muscles are intact with lateral nystagmus bilaterally. Visual acuity and visual weir seem normal grossly to confrontation. There are no deficits to sensation in the face in all 3 distributions of the fifth cranial nerve bilaterally. Corneal reflexes are positive bilaterally. Facial strength and symmetry was normal bilaterally. Hearing seems intact grossly to voice and finger rub bilaterally. Palate moves well without asymmetry. There is normal sternocleidomastoid and trapezius (shoulder shrug) strength bilaterally. Tongue is midline with good strength bilaterally. Neck has a full range of motion without discomfort. There are no cervical bruits bilaterally. There are no cranial or ocular bruits. Heart is without murmur. There is a regular rhythm and rate. Cervical, thoracic, and lumbar spine are nontender to palpation. Gait is not tested but stance is good sitting up in the chair With outstretched arms there is no drift. There are no resting, postural, or action tremors. There is no ataxia with finger to nose testing. There is good facility in the hands. No other abnormal involuntary movements are noted. Motor strength is 5/5 diffusely in the arms bilaterally including deltoids, biceps, triceps, brachioradialis, wrist flexors and extensors, window shade cutter and mounter, and intrinsic hand muscles. Motor strength is 5/5 diffusely in the legs bilaterally including hip flexors, quadriceps, hamstrings, gastrocnemius, tibialis anterior, tibialis posterior, and Peroneii muscles bilaterally. Toe extensors are normal and there is good bulk in the extensor digitorum brevis muscles bilaterally. I did not note any focal or right-sided weakness. The limbs have good tone without rigidity or spasticity. There is no atrophy noted in the muscles. Muscle bulk is normal, there is no tenderness to palpation, no myotonia to percussion, and no fasciculations seen. Sensory examination reveals some decreased sensation to all areas of the right arm and leg compared to the left which seems normal Reflexes are 1/4 in the biceps, triceps, brachioradialis, quadriceps, and Achilles tendons bilaterally. Toes are downgoing with plantar stimulation bilaterally. Peripheral pulses are present and of normal quality distally in all 4 limbs. There is no peripheral edema noted in the limbs. Results & Data Vital Signs (Past 12 Hours) Vital Signs Temp Pulse Pulse Resp BP Pulse Ox 04/12/19 07:49 36.6 C 61 18 148/92 H 95 04/12/19 07:19 64 04/12/19 01:21 65 Diagnostic Findings MRI OF THE BRAIN WITHOUT IV CONTRAST CLINICAL HISTORY: Right-sided weakness. Blurred vision. COMPARISON STUDY: CT of the brain dated 04/11/2019. TECHNIQUE: MRI of the brain was performed utilizing various T1 and T2-weighted sequences in the axial, sagittal, and coronal planes. IV contrast was not administered for this examination. The examination is modestly degraded by motion artifact. FINDINGS: Brain parenchyma: The brain parenchyma is normal in appearance. There is no hemorrhage or mass effect. There is no restricted diffusion to suggest acute ischemia. Mckeon-white matter differentiation is preserved. No extra-axial fluid collection is seen. The hippocampi are normal and symmetric. The cerebellar tonsils are normal in configuration. Ventricles, sulci, and cisterns: Normal in configuration. Pituitary and sella: Unremarkable. Intracranial vasculature: Normal flow voids are maintained at the skull base. Orbits: The bony orbits are grossly intact. Orbital contents are normal in appearance. Sinuses and mastoids: Clear. Calvarium: Unremarkable. Cervical cord: Partially visualized cervical spinal cord is normal in morphology and signal intensity. IMPRESSION: There is no acute intracranial abnormality. Electronically signed by: Italo Kee M.D. 04/11/2019 6:20 PM
--- NOTE | 2019-04-12 14:24 | Hospitalist Progress Note ---
Date of Service April 12, 2019 Assessment & Plan (1) Right sided weakness: Per admitting service notes: Several day history of RLE weakness. CT head without contrast negative. MRI brain: No acute process, no acute CVA Carotid Doppler: No hemodynamically significant stenosis History: No arrhythmias Evaluated by neurologist, Dr. Ni No focal weakness noted on April 12, 2019 No further testing or interventions recommended at this time Per neurologist, recommendations: 1. Continue gabapentin and levetiracetam at the current doses. 2. Decrease Dilantin to 200 milligrams at bedtime (drop the 50 milligram) and recheck a trough level in 2 weeks. 3. I could follow this patient as an outpatient to make additional recommendations for seizure medication if desired. 4. There is no need for other neurologic testing at this time. 5. Try to limit Fioricet tablet usage to no more than 10 tablets per month. We can discuss other treatments for headache as an outpatient. 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 Dilantin level 20.8, slightly toxic Neurologist recommending to discontinue Dilantin 50 mg at night Continue Keppra Patient may follow-up with Dr. Ni, [facility] group neurologist as outpatient (3) Hypertension: Continue to monitor blood pressure Continue metoprolol. (4) DVT prophylaxis: Given SQ enoxaparin. (5) Discharge planning issues: Return to [facility] under the care of the medical team there. Subjective Follow-up for right lower leg weakness Seen resting in bed side chair, comfortable Awake alert oriented x3, responding to all questions appropriately Denies leg weakness or numbness No other new focal neurologic symptoms States he feels fine overall Agreeable for discharge today Review of Systems Review of Systems: All systems reviewed & are unremarkable except as noted in HPI & below Physical Exam Physical Exam: General- oriented x 3, not in distress, speaks in sentences with no effort or accessory muscle use Head- atraumatic Eyes- PERRL, EOMI, anicteric ENT- oropharynx clear Neck- supple, no JVD, no adenopathy, no thyromegaly; carotids +2/2, no bruits appreciated Lungs- clear to auscultation bilaterally, no rales/wheezes Heart- normal rate, regular rhythm; no murmur, no gallop, no rub appreciated Abdomen- normal bowel sounds, nondistended, soft, nontender, no masses or hepatosplenomegaly Extremities- no pretibial edema, no calf tenderness; peripheral pulses intact Neuro- alert, oriented x 3; CN 2-12 grossly intact; motor 5/5 bilaterally;sensation 100% on all extremities; no other gross focal neurologic deficits Skin- warm & dry Results & Data Vital Signs (Past 12 Hours) Vital Signs Temp Pulse Pulse Resp BP Pulse Ox 04/12/19 07:49 36.6 C 61 18 148/92 H 95 04/12/19 07:19 64 Laboratory Results All noted and reviewed
[2019-04-12] MEDS ORDERED: STROKE PATIENT DISCHARGE STA (14:31)
--- NOTE | 2019-04-12 14:33 | Discharge Summary ---
Date of Service April 12, 2019 Admission HPI Per Admitting Provider 29 YO male followed by medical team at [facility]. History of closed head injury at the age of 9, subsequent seizure disorder, migraine headaches, hypertension, and other problems as noted above. Seizures occur about twice a year. Last episode occurred about a week ago. At that time he did not experience any focal neuro symptoms. Subsequently developed weakness in right upper and right lower extremities a few days later. RUE weakness has resolved. Persistent RLE weakness; drags his right foot but has not suffered any falls. No change of migraine headache symptoms. No visual changes. Some dysarthria. No aphasia. No sensory changes. Admission Exam Per Admitting Provider Constitutional: WD/WN, vitals as above no acute distress Eyes: PERRL, conjunctivae normal, anicteric sclerae ENMT: external ear and nose normal, oropharynx normal Neck: trachea midline, no thyromegaly Respiratory: normal respiratory effort, lungs clear to auscultation Cardiovascular: Rate/Rhythm: regular rate Heart Sounds: no gallop, no murmur and no cardiac rub Vessels: normal carotid upstroke; no JVD and no carotid bruit Extremities: normal capillary refill; no calf tenderness and no edema Gastrointestinal (Abdomen): normal bowel sounds, soft, nontender, no hepatosplenomegaly Musculoskeletal: Head/Neck/Chest: neck supple Extremities: strength 5/5 throughout; no cyanosis and no clubbing Skin: no rashes, warm and dry Neurologic: PERRL, EOMI ? right facial palsy no dysarthria or aphasia upper extremity strength 5/5 bilat RLE hip flexion 4/5, plantar flexion 4/5, dorsiflexion 4/5 patellar DTR's 2/2 bilat plantar reflexes downgoing bilat Psychiatric: Orientation: alert and oriented x 3 Affect: euthymic affect Lymphatic: no cervical lymphadenopathy Principal Diagnosis Episode of right sided leg weakness Discharge Exam General- oriented x 3, not in distress, speaks in sentences with no effort or accessory muscle use Head- atraumatic Eyes- PERRL, EOMI, anicteric ENT- oropharynx clear Neck- supple, no JVD, no adenopathy, no thyromegaly; carotids +2/2, no bruits appreciated Lungs- clear to auscultation bilaterally, no rales/wheezes Heart- normal rate, regular rhythm; no murmur, no gallop, no rub appreciated Abdomen- normal bowel sounds, nondistended, soft, nontender, no masses or hepatosplenomegaly Extremities- no pretibial edema, no calf tenderness; peripheral pulses intact Neuro- alert, oriented x 3; CN 2-12 grossly intact; motor 5/5 bilaterally;sensation 100% on all extremities; no other gross focal neurologic deficits Skin- warm & dry Discharge Data Allergies Allergy/AdvReac Type Severity Reaction Status Date / Time loratadine Allergy Unknown . Verified 04/11/19 11:29 tramadol Allergy Unknown . Verified 04/11/19 11:29 Consultations 04/11/19 12:37 ED Decision to Admit Stat 04/11/19 16:02 Consult Case Management - Discharge Planning Routine Consult Neurology Routine Ordered Studies 04/11/19 11:06 CT head/brain wo con Stat FINDINGS: Ship Erector topogram: Unremarkable. Ventricles and sulci normal in size. No hemorrhage. Brain parenchyma normal in appearance with preserved mckeon-white differentiation. No acute territorial infarct. No mass effect or midline shift. No extra-axial fluid collection. Paranasal sinuses and mastoid air cells clear. Calvarium intact. IMPRESSION: 1. No acute intracranial abnormality. 04/11/19 16:02 MR brain wo con Routine FINDINGS: Brain parenchyma: The brain parenchyma is normal in appearance. There is no hemorrhage or mass effect. There is no restricted diffusion to suggest acute ischemia. Mckeon-white matter differentiation is preserved. No extra-axial fluid collection is seen. The hippocampi are normal and symmetric. The cerebellar tonsils are normal in configuration. Ventricles, sulci, and cisterns: Normal in configuration. Pituitary and sella: Unremarkable. Intracranial vasculature: Normal flow voids are maintained at the skull base. Orbits: The bony orbits are grossly intact. Orbital contents are normal in appearance. Sinuses and mastoids: Clear. Calvarium: Unremarkable. Cervical cord: Partially visualized cervical spinal cord is normal in morphology and signal intensity. IMPRESSION: There is no acute intracranial abnormality. US carotid doppler BI Routine FINDINGS: There is no significant atherosclerotic plaque. Velocity measurements are listed COMMON CAROTID PEAK SYSTOLIC VELOCITY (CM/S): RIGHT 137 LEFT 139 ICA PEAK SYSTOLIC VELOCITY (CM/S): RIGHT 116 LEFT 99 The systolic ratios between internal to common carotid arteries were normal. Antegrade flow is seen in the vertebral arteries. The external carotid arteries are patent. Blood pressure in the right arm measured 149/106. Blood pressure in the left arm measured 145/89. IMPRESSION: No evidence for a hemodynamically significant stenosis. Hospital Course (1) Right sided weakness: Per admitting service notes: Several day history of RLE weakness. CT head without contrast negative. MRI brain: No acute process, no acute CVA Carotid Doppler: No hemodynamically significant stenosis History: No arrhythmias Evaluated by neurologist, Dr. Ni No focal weakness noted on April 12, 2019 No further testing or interventions recommended at this time Per neurologist recommendations. Dr. Ni: 1. Continue gabapentin and levetiracetam at the current doses. 2. Decrease Dilantin to 200 milligrams at bedtime (drop the 50 milligram) and recheck a trough level in 2 weeks. 3. I could follow this patient as an outpatient to make additional recommendations for seizure medication if desired. 4. There is no need for other neurologic testing at this time. 5. Try to limit Fioricet tablet usage to no more than 10 tablets per month. We can discuss other treatments for headache as an outpatient. 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 Dilantin level 20.8, slightly toxic Neurologist recommending to discontinue Dilantin 50 mg at night Continue Keppra Patient may follow-up with Dr. Ni, [facility] group neurologist as outpatient (3) Hypertension: Continue to monitor blood pressure Continue metoprolol. (4) DVT prophylaxis: Given SQ enoxaparin. (5) Discharge planning issues: Return to [facility] under the care of the medical team there. Total Time Total Time Spent Total Time Spent (In Minutes): 45 minutes Discharge Plan Discharge Items [facility] Reason For Visit: RIGHT SIDED WEAKNESS Discharge Diagnosis: Episode of right-sided weakness, resolved Discharge Goals: Diagnostic testing and Therapeutic intervention Activity: Resume your previous activity Driving/Machine Use Comment: No driving Non-emergency contact: Primary Care Provider and Neurologist Call non-emergency contact if: you have any medication questions, your symptoms worsen and you have a fever Follow-up/Referrals: [facility] [Primary Care Provider] - Diet: Heart Healthy Addtl Provider Instructions: Dilantin reduced to 20 mg p.o. daily. Repeat Dilantin trough level in 2 weeks. Try to limit Fioricet to not more than 10 tablets/month. Follow-up with Dr. Ni, [facility], neurology service. Please refer to accompanying hospital discharge summary for further details. Prescriptions: Continued gabapentin 600 mg Tablet 600 mg PO BID RF: 0 metoprolol tartrate 100 mg Tablet 100 mg PO BID RF: 0 levetiracetam [Keppra] 500 mg Tablet 500 mg PO BID RF: 0 ondansetron HCl 4 mg Tablet 4 mg PO TID PRN (Reason: Nausea And Vomiting) RF: 0 phenytoin sodium extended 100 mg Capsule 200 mg PO HS RF: 0 [id number]-ulcd 50-325-40 mg Tablet 1 tab PO BID PRN (Reason: Migraine Headache) RF: 0 gabapentin 300 mg Capsule 300 mg PO BID RF: 0 aspirin 81 mg Tablet,Chewable 81 mg PO DAILY RF: 0 diclofenac sodium 75 mg Tablet,Delayed Release (Dr/Ec) 75 mg PO BID PRN (Reason: Pain) RF: 0 Discontinued phenytoin 50 mg Tablet,Chewable 50 mg PO HS RF: 0 Admission Data Admit Date/Time: 04/11/19 13:31 Attending Provider: Bronson Fowler Admit Provider: Rohit Schulz Primary Care Provider: [facility] Other Providers: Rohit Schulz ; Tra Ni III Service: Medical
[2019-04-14 04:03] LABS: Amobarbital, Urine Conf NEGATIVE NG/ML (CUTOFF=100); Butalbital, Urine 1000 NG/ML (CUTOFF=100); Pentobarbital, Urine Conf NEGATIVE NG/ML (CUTOFF=100); Phenobarbital, Urine NEGATIVE NG/ML (CUTOFF=100); Secobarbital, Urine Conf NEGATIVE NG/ML (CUTOFF=100)
== END 2019-04-12 15:28 ==
LOC: 2W 10:45 → ED 10:45 → 2W 15:20